=== PATIENT | male | born 1960 ===

== ENCOUNTER 2023-04-20 07:30 | Day surgery (SDC) | payer OTHER ==
[~2023-04-20] VITALS: Ht 185.4 cm; Wt 80.7 kg
[2023-04-20] MEDS ORDERED: fentaNYL citrate 0.05 MG/ML VIAL ONE (11:16)
[2023-04-20] MEDS ORDERED: LIDOCAINE 2% 100 MG/5 ML UJET TP ONE (11:17)
[2023-04-20] MEDS ORDERED: fentaNYL citrate 0.05 MG/ML VIAL IVP ONE (12:05)
== END 2023-04-20 13:20 | disposition home or self-care (01) ==
LOC: MDS 07:30 → MMU 07:32 → MDS 13:20
PROVIDERS: ATTEND Internal Medicine Gastroenterology
DX: Z12.11 Encounter for screening for malignant neoplasm of colon (principal); Z86.010 Personal history of colon polyps; K63.5 Polyp of colon; F17.210 Nicotine dependence, cigarettes, uncomplicated; Z79.899 Other long term (current) drug therapy
CPT/HCPCS: 45385; J3010